=== PATIENT | male | born 1945 | race Caucasian/White ===

== ENCOUNTER 2020-11-28 20:36 | Emergency (ER) | payer MEDICARE ==
[2020-11-28] MEDS ORDERED: Morphine 4 MG/ML VIAL ONE (21:09)
== END 2020-11-28 21:53 | disposition home or self-care (01) ==
LOC: NAV ERS 20:36
DX: S22.32XA Fracture of one rib, left side, initial encounter for closed fracture (principal); I10 Essential (primary) hypertension; Z79.899 Other long term (current) drug therapy; W01.0XXA Fall on same level from slipping, tripping and stumbling without subsequent striking against object, initial encounter
CPT/HCPCS: 96372; J2270